=== PATIENT | male | born 1960 | race Caucasian/White ===

== ENCOUNTER 2020-01-01 12:29 | Emergency (ER) | payer OTHER ==
[~2020-01-01] VITALS: Ht 172.7 cm; Wt 88.5 kg
[2020-01-01] MEDS ORDERED: ALBUTEROL SULFATE 8 GM HFA.AER.AD IH STA (12:55)
[2020-01-01] MEDS ORDERED: IBUPROFEN 800 MG TABLET PO ONE (13:00)
[2020-01-01] MEDS ORDERED: predniSONE 10 MG TABLET PO ONE (13:00)
[2020-01-01] MEDS ORDERED: predniSONE 10 MG TABLET ONE (13:06)
[2020-01-01] MEDS ORDERED: IBUPROFEN 800 MG TABLET ONE (13:06)
[2020-01-01] MEDS ORDERED: predniSONE 50 MG TABLET ONE (13:07)
[2020-01-01 13:22] LABS: BASOPHILS # (AUTO) 0.1 K/uL (0.0-8.0); BASOPHILS % (AUTO) 0.9 % (0.0-2.0); EOSINOPHILS # (AUTO) 0.1 K/uL (0.0-0.7); EOSINOPHILS % (AUTO) 1.9 % (0.0-7.0); HEMATOCRIT 45.2 % (36.7-47.1); HEMOGLOBIN 15.4 g/dL (12.5-16.3); LYMPHOCYTES # (AUTO) 1.7 K/uL (20.0-40.0); LYMPHOCYTES % (AUTO) 25.9 % (20.5-51.5); MEAN CORPUSCULAR HEMOGLOBIN 31.8 uug (23.8-33.4); MEAN CORPUSCULAR HGB CONC 34 g/dL (32.5-36.3); MEAN CORPUSCULAR VOLUME 93.7 fL (73.0-96.2); MONOCYTES # (AUTO) 0.4 K/uL (2.0-10.0); MONOCYTES % (AUTO) 6.5 % (0.0-11.0); NEUTROPHILS # (AUTO) 4.3 K/uL (1.8-8.9); NEUTROPHILS % (AUTO) 64.8 % (38.5-71.5); PLATELET COUNT (AUTO) 237 K/uL (152-348); RED BLOOD CELL COUNT(AUTO) 4.82 MIL/uL (4.06-5.63); WHITE BLOOD COUNT (AUTO) 6.7 K/uL (3.6-10.2)
[2020-01-01 13:42] LABS: BILIRUBIN,DIRECT 0.1 mg/dL (0.0-0.2); BILIRUBIN,TOTAL 0.5 mg/dL (0.2-1.0); CREATININE 1.1 mg/dL (0.6-1.3); POTASSIUM 4.1 mmol/L (3.5-5.1); TOTAL PROTEIN, SERUM 6.8 g/dL (6.4-8.2)
--- NOTE | 2020-01-01 17:03 | NUR ---
Patient discharged to home in stable condition. Written and verbal after care instructions given. Patient verbalizes understanding of instructions. Stressed follow up or return to ER for worsening s/s. pt says feels better. pt walks in steady gait.
[2020-01-01 17:04] VITALS: BP 129/81
== END 2020-01-01 17:06 | disposition home or self-care (01) ==
LOC: ER 12:29
DX: J45.901 Unspecified asthma with (acute) exacerbation (principal); R07.2 Precordial pain; E78.5 Hyperlipidemia, unspecified; Z82.49 Family history of ischemic heart disease and other diseases of the circulatory system; Z91.013 Allergy to seafood
CPT/HCPCS: 36415; 71045; 80048; 80061; 80076; 83880; 84484 ×2; 85025; 93005; 99291; J7512 ×2; 70030-TC; A4663; J3535

== ENCOUNTER 2020-07-02 07:44 | Emergency (ER) | payer OTHER ==
[~2020-07-02] VITALS: Ht 167.6 cm; Wt 88.5 kg
[~2020-07-02 07:44] MED LIST: ALBU8.5H8 IH
--- NOTE | 2020-07-02 07:50 | NUR ---
Dr. Mary at bedside for MSE
[2020-07-02] MEDS ORDERED: ALBUTEROL SULFATE 2.5 MG/3 ML NEBU NEB ONE ×2 (08:00)
[2020-07-02] MEDS ORDERED: predniSONE 10 MG TABLET PO ONE (08:00)
[2020-07-02] MEDS ORDERED: ALBUTEROL SULFATE 2.5 MG/3 ML NEBU ONE ×2 (08:06→08:31)
[2020-07-02] MEDS ORDERED: IPRATROPIUM BROMIDE 0.5 MG/2.5 ML NEBU ONE (08:06)
[2020-07-02] MEDS ORDERED: predniSONE 10 MG TABLET ONE (08:19)
[2020-07-02] MEDS ORDERED: predniSONE 50 MG TABLET ONE (08:19)
[2020-07-02 08:21] LABS: BASOPHILS # (AUTO) 0.1 K/uL (0.0-8.0); BASOPHILS % (AUTO) 1.2 % (0.0-2.0); EOSINOPHILS # (AUTO) 0.3 K/uL (0.0-0.7); EOSINOPHILS % (AUTO) 3.4 % (0.0-7.0); HEMOGLOBIN 15.8 g/dL (12.5-16.3); LYMPHOCYTES # (AUTO) 2.9 K/uL (20.0-40.0); LYMPHOCYTES % (AUTO) 36.5 % (20.5-51.5); MEAN CORPUSCULAR HEMOGLOBIN 31.7 uug (23.8-33.4); MEAN CORPUSCULAR HGB CONC 34 g/dL (32.5-36.3); MEAN CORPUSCULAR VOLUME 92.2 fL (73.0-96.2); MONOCYTES # (AUTO) 0.6 K/uL (2.0-10.0); MONOCYTES % (AUTO) 7.2 % (0.0-11.0); NEUTROPHILS # (AUTO) 4.2 K/uL (1.8-8.9); NEUTROPHILS % (AUTO) 51.7 % (38.5-71.5); PLATELET COUNT (AUTO) 242 K/uL (152-348); RED BLOOD CELL COUNT(AUTO) 4.99 MIL/uL (4.06-5.63); WHITE BLOOD COUNT (AUTO) 8.1 K/uL (3.6-10.2)
[2020-07-02 08:28] LABS: CREATININE 1.1 mg/dL (0.6-1.3); POTASSIUM 3.7 mmol/L (3.5-5.1)
[2020-07-02 09:05] VITALS: BP 115/76
--- NOTE | 2020-07-02 09:06 | NUR ---
IV removed. Catheter intact and site benign. Pressure and 4x4 gauze applied to site. No bleeding noted. Patient does not wish to proceed with medical care recommended by Dr. Mary. Patient given information related to possible complications, up to and including , which could occur as a result of leaving the hospital at this time. Patient verbalizes understanding of risks involved due to leaving against medical advice. Patient has signed AMA form. Patient ambulating with steady gait .NAD noted
== END 2020-07-02 09:10 | disposition left against medical advice (07) ==
LOC: ER 07:44
DX: J45.901 Unspecified asthma with (acute) exacerbation (principal); R03.0 Elevated blood-pressure reading, without diagnosis of hypertension; F17.210 Nicotine dependence, cigarettes, uncomplicated; Z82.49 Family history of ischemic heart disease and other diseases of the circulatory system
CPT/HCPCS: 36415; 71045; 80048; 83880; 84484; 85025; 93005; 94640; 99285; 99406; J7512 ×2; 70030-TC; A4663; J3590

== ENCOUNTER 2021-06-09 10:10 | Emergency (ER) | payer OTHER ==
[~2021-06-09] VITALS: Ht 172.7 cm; Wt 88.5 kg
[2021-06-09 11:10] LABS: HEMATOCRIT 45.4 % (36.7-47.1); MEAN CORPUSCULAR HEMOGLOBIN 31.7 uug (23.8-33.4); MEAN CORPUSCULAR VOLUME 92.3 fL (73.0-96.2); PLATELET COUNT (AUTO) 237 K/uL (152-348)
--- NOTE | 2021-06-09 11:10 | NUR ---
receved pt 61yrs male c/o sob for allegic reaction respiration spont and easy hx alleric reaction on distress skin warm and nata to touch seen by dr. arnoldo salas drow by lab tach ekg done
[2021-06-09 11:18] LABS: CREATININE 0.8 mg/dL (0.6-1.3); POTASSIUM 3.9 mmol/L (3.5-5.1)
[2021-06-09 11:35] LABS: BILIRUBIN,DIRECT 0.1 mg/dL (0.0-0.2); BILIRUBIN,TOTAL 0.3 mg/dL (0.2-1.0); TOTAL PROTEIN, SERUM 6.8 g/dL (6.4-8.2)
[2021-06-09] MEDS ORDERED: ALBUTEROL SULFATE 2.5 MG/3 ML NEBU NEB ONE (13:30)
[2021-06-09] MEDS ORDERED: IPRATROPIUM BROMIDE 0.5 MG/2.5 ML NEBU NEB ONE (13:30)
[2021-06-09] MEDS ORDERED: methylPREDNISolone SOD SUCC 125 MG/2 ML VIAL IV ONE (13:30)
[2021-06-09] MEDS ORDERED: ALBUTEROL SULFATE 1.25 MG/3 ML NEBU ONE (13:37)
[2021-06-09] MEDS ORDERED: IPRATROPIUM BROMIDE 0.5 MG/2.5 ML NEBU ONE (13:37)
[2021-06-09] MEDS ORDERED: methylPREDNISolone SOD SUCC 125 MG/2 ML VIAL ONE (13:59)
--- NOTE | 2021-06-09 14:45 | NUR ---
HHN TX GIVEN BY RT na salmdrole given pt imroving after tremnt vs stable
[2021-06-09] MEDS ORDERED: ALBU2.5V38 NEB (15:16)
[2021-06-09] MEDS ORDERED: NEBU-171 MC (15:16)
--- NOTE | 2021-06-09 15:24 | NUR ---
pt imroving and resolve sob and titness feeling batter ad/c instraction and rx given to pt fully and verblized understood d/c home with rx
[2021-06-09 15:29] VITALS: BP 128/84
== END 2021-06-09 15:25 | disposition home or self-care (01) ==
LOC: ER 10:10
DX: R06.00 Dyspnea, unspecified (principal); Z20.822 Contact with and (suspected) exposure to COVID-19; Z82.49 Family history of ischemic heart disease and other diseases of the circulatory system; F17.200 Nicotine dependence, unspecified, uncomplicated; Z91.013 Allergy to seafood; J45.909 Unspecified asthma, uncomplicated
CPT/HCPCS: 36415; 71045; 80048; 80076; 83880; 84484; 85025; 85379; 87426; 93005; 94640; 96374; 99285; J2930; 70030-TC; J3590

== ENCOUNTER 2021-07-15 11:49 | Emergency (ER) | payer OTHER ==
[~2021-07-15] VITALS: Ht 172.7 cm; Wt 88.5 kg
[~2021-07-15 11:49] MED LIST changes: +ALBU2.5V38 NEB; +NEBU-171 MC
[2021-07-15] MEDS ORDERED: predniSONE 20 MG TABLET PO ONE (12:15)
[2021-07-15] MEDS ORDERED: IPRATROPIUM BROMIDE 0.5 MG/2.5 ML NEBU NEB ONE (12:15)
[2021-07-15] MEDS ORDERED: ALBUTEROL SULFATE 2.5 MG/3 ML NEBU NEB ONE (12:15)
[2021-07-15] MEDS ORDERED: predniSONE 20 MG TABLET ONE (12:22)
[2021-07-15 12:30] LABS: MEAN CORPUSCULAR HEMOGLOBIN 31.9 uug (23.8-33.4); MEAN CORPUSCULAR VOLUME 92.3 fL (73.0-96.2); PLATELET COUNT (AUTO) 240 K/uL (152-348)
[2021-07-15] MEDS ORDERED: IPRATROPIUM BROMIDE 0.5 MG/2.5 ML NEBU ONE (12:33)
[2021-07-15] MEDS ORDERED: ALBUTEROL SULFATE 2.5 MG/3 ML NEBU ONE (12:33)
--- NOTE | 2021-07-15 12:36 | NUR ---
PT IS IN ROOM #1A. DR BECERRA EVALUATED THE PT.
[2021-07-15 12:39] LABS: CREATININE 1.1 mg/dL (0.6-1.3); POTASSIUM 3.8 mmol/L (3.5-5.1)
[2021-07-15 12:51] LABS: BILIRUBIN,DIRECT 0.1 mg/dL (0.0-0.2); BILIRUBIN,TOTAL 0.4 mg/dL (0.2-1.0); TOTAL PROTEIN, SERUM 6.6 g/dL (6.4-8.2)
[2021-07-15] MEDS ORDERED: ALBU18HF2 INH (15:23)
[2021-07-15] MEDS ORDERED: PRED50TA PO (15:23)
--- NOTE | 2021-07-15 15:55 | NUR ---
PT WAS D/C'd TO HOME. D/C ISTRUCTIONS GIVEN TO THE PT BY DR BECERRA.
[2021-07-15 15:59] VITALS: BP 137/88
== END 2021-07-15 16:00 | disposition home or self-care (01) ==
LOC: ER 11:54
DX: J45.909 Unspecified asthma, uncomplicated (principal); F17.200 Nicotine dependence, unspecified, uncomplicated; Z82.49 Family history of ischemic heart disease and other diseases of the circulatory system; Z91.013 Allergy to seafood
CPT/HCPCS: 36415; 71045; 80048; 80076; 83880; 84484; 85025; 85379; 93005; 94640; 99285; J7512; 70030-TC; A4663; J3590

== ENCOUNTER 2022-04-01 13:05 | Emergency (ER) | payer BC, OTHER ==
[~2022-04-01] VITALS: Ht 167.6 cm; Wt 85.3 kg
[~2022-04-01 13:05] MED LIST changes: +ALBU18HF2 INH; +PRED50TA PO
--- NOTE | 2022-04-01 13:05 | NUR ---
Dr Campbell at the bedside for MSE.
[2022-04-01] MEDS ORDERED: IPRATROPIUM BROMIDE 0.5 MG/2.5 ML NEBU NEB ONE (13:15)
[2022-04-01] MEDS ORDERED: predniSONE 10 MG TABLET PO ONE (13:15)
[2022-04-01] MEDS ORDERED: ALBUTEROL SULFATE 2.5 MG/3 ML NEBU NEB ONE (13:15)
[2022-04-01] MEDS ORDERED: IV NORMAL SALINE 1000 ML BAG IV ONE (13:15)
[2022-04-01] MEDS ORDERED: IPRATROPIUM BROMIDE 0.5 MG/2.5 ML NEBU ONE ×2 (13:31→13:36)
[2022-04-01] MEDS ORDERED: predniSONE 20 MG TABLET ONE (13:31)
[2022-04-01] MEDS ORDERED: ALBUTEROL SULFATE 2.5 MG/3 ML NEBU ONE ×2 (13:31→13:35)
[2022-04-01 14:00] LABS: HEMATOCRIT 45.7 % (36.7-47.1); MEAN CORPUSCULAR VOLUME 94.3 fL (73.0-96.2); PLATELET COUNT (AUTO) 223 K/uL (152-348)
[2022-04-01] MEDS ORDERED: AMOX500C2 PO (14:19)
[2022-04-01] MEDS ORDERED: DOXY-326 PO (14:19)
[2022-04-01] MEDS ORDERED: PRED20TA PO (14:20)
[2022-04-01 14:49] LABS: CARBON DIOXIDE 27 mmol/L (21-32); CHLORIDE 105 mmol/L (98-107); CREATININE 0.9 mg/dL (0.6-1.3); GLUCOSE 118 mg/dL (74-106); POTASSIUM 3.8 mmol/L (3.5-5.1); UREA NITROGEN, BLOOD 11 mg/dL (7-18)
--- NOTE | 2022-04-01 16:47 | NUR ---
IV removed. Catheter intact and site benign. Pressure and 4x4 gauze applied to site. No bleeding noted.
[2022-04-01] MEDS ORDERED: ALBU8.5H8 INH (17:08)
[2022-04-01] MEDS ORDERED: PRED50TA PO (17:13)
--- NOTE | 2022-04-01 17:17 | NUR ---
Patient does not wish to proceed with medical care recommended by (Emma). Patient given information related to possible complications, up to and including , which could occur as a result of leaving the hospital at this time. Patient verbalizes understanding of risks involved due to leaving against medical advice. Patient has signed AMA form.
[2022-04-01 17:18] VITALS: BP 121/78
== END 2022-04-01 17:21 | disposition left against medical advice (07) ==
LOC: ER 13:05
DX: R07.89 Other chest pain (principal); J18.9 Pneumonia, unspecified organism; J45.909 Unspecified asthma, uncomplicated; Z91.013 Allergy to seafood; Z82.49 Family history of ischemic heart disease and other diseases of the circulatory system; R94.31 Abnormal electrocardiogram [ECG] [EKG]; F17.200 Nicotine dependence, unspecified, uncomplicated; Z53.29 Procedure and treatment not carried out because of patient's decision for other reasons
CPT/HCPCS: 99285; 96360; 71045; 96361; 80048; 83880; 85025; 84484 ×2; 36415; 93005; 94644; J7512; J7040; A4663; J3590

== ENCOUNTER 2022-12-02 04:22 | Emergency (ER) | payer BC ==
[~2022-12-02] VITALS: Ht 172.7 cm; Wt 86.2 kg
[~2022-12-02 04:22] MED LIST changes: +ALBU8.5H8 INH; +AMOX500C2 PO; +DOXY-326 PO
--- NOTE | 2022-12-02 04:51 | NUR ---
MD AT BEDSIDE FOR EXAM, PATIENT HAS BEEN INFORMED OF PLAN OF CARE, NO S/S OF ANY DISTRESS NOTED.
[2022-12-02] MEDS ORDERED: LORAZEPAM 0.5 MG TABLET PO ONE (05:00)
[2022-12-02] MEDS ORDERED: LORA-259 PO (05:01)
[2022-12-02] MEDS ORDERED: LORAZEPAM 1 MG TABLET ONE (05:06)
--- NOTE | 2022-12-02 05:07 | NUR ---
MEDICATED PER ORDER.
[2022-12-02 05:13] VITALS: BP 130/85
--- NOTE | 2022-12-02 05:13 | NUR ---
ACI GIVEN, STATES UNDERSTANDING, REMAINS STABLE FOR DISCHARGE HOME WITH FAMILY.
== END 2022-12-02 05:14 | disposition home or self-care (01) ==
LOC: ER 04:22
DX: J45.909 Unspecified asthma, uncomplicated (principal); T50.905A Adverse effect of unspecified drugs, medicaments and biological substances, initial encounter; F17.210 Nicotine dependence, cigarettes, uncomplicated; Z91.013 Allergy to seafood; Z79.2 Long term (current) use of antibiotics; Z79.899 Other long term (current) drug therapy; Y92.89 Other specified places as the place of occurrence of the external cause
CPT/HCPCS: A4663

== ENCOUNTER 2024-01-05 02:04 | Emergency (ER) | payer BC, MEDICAID ==
[~2024-01-05] VITALS: Ht 172.7 cm; Wt 90.7 kg
[~2024-01-05 02:04] MED LIST changes: +LORA-259 PO
[2024-01-05] MEDS: ALBUTEROL SULFATE 2.5 MG/3 ML NEBU NEB ONE (03:06)
[2024-01-05] MEDS: IPRATROPIUM BROMIDE 0.5 MG/2.5 ML NEBU NEB ONE (03:06)
[2024-01-05 03:07] VITALS: O2SAT 98
[2024-01-05 03:08] LABS: BASOPHILS # (AUTO) 0.1 K/UL (0.0-0.2); BASOPHILS % (AUTO) 0.6 % (0.0-2.0); EOSINOPHILS # (AUTO) 0.5 K/uL (0.0-0.7); EOSINOPHILS % (AUTO) 4.9 % (0.0-7.0); HEMOGLOBIN 15.3 g/dL (12.5-16.3); LYMPHOCYTES # (AUTO) 2.3 K/uL (0.8-4.8); LYMPHOCYTES % (AUTO) 24.8 % (20.5-51.5); MEAN CORPUSCULAR HEMOGLOBIN 31.6 uug (23.8-33.4); MEAN CORPUSCULAR HGB CONC 35 g/dL (32.5-36.3); MEAN CORPUSCULAR VOLUME 91.1 fL (73.0-96.2); MONOCYTES # (AUTO) 0.8 K/uL (0.1-1.30); MONOCYTES % (AUTO) 8.6 % (0.0-11.0); NEUTROPHILS # (AUTO) 5.6 K/uL (1.8-8.9); NEUTROPHILS % (AUTO) 61.1 % (38.5-71.5); PLATELET COUNT (AUTO) 308 K/uL (152-348); RED BLOOD CELL COUNT(AUTO) 4.83 MIL/uL (4.06-5.63); RED CELL DISTRIBUTION WIDTH 13.7 % (12.1-16.2); WHITE BLOOD COUNT (AUTO) 9.2 K/uL (3.6-10.2)
[2024-01-05] MEDS ORDERED: IPRATROPIUM BROMIDE 0.5 MG/2.5 ML NEBU ONE (03:08)
[2024-01-05] MEDS ORDERED: ALBUTEROL SULFATE 2.5 MG/3 ML NEBU ONE (03:08)
[2024-01-05] MEDS ORDERED: predniSONE 20 MG TABLET ONE (03:14)
[2024-01-05] MEDS: predniSONE 20 MG TABLET PO ONE (03:18)
[2024-01-05 03:22] VITALS: O2SAT 98
[2024-01-05 03:33] LABS: DIFFERENTIAL COMMENT 1
[2024-01-05 03:41] LABS: CALCIUM 9.3 mg/dL (8.5-10.1); CARBON DIOXIDE 24 mmol/L (21-32); CHLORIDE 104 mmol/L (98-107); CREATININE 0.9 mg/dL (0.6-1.3); GLUCOSE 105 mg/dL (74-106); SODIUM SERUM 140 mmol/L (136-145); UREA NITROGEN, BLOOD 16 mg/dL (7-18)
[2024-01-05 03:49] LABS: ALANINE AMINOTRANSFERASE 23 U/L (16-63); ALBUMIN 3.7 g/dL (3.4-5.0); ALKALINE PHOSPHATASE 200 U/L (50-136); ASPARTATE AMINOTRANSFERASE 7 U/L (15-37); BILIRUBIN,DIRECT 0.1 mg/dL (0.0-0.2); BILIRUBIN,TOTAL 0.4 mg/dL (0.2-1.0); TOTAL PROTEIN, SERUM 6.9 g/dL (6.4-8.2)
[2024-01-05] MEDS ORDERED: METH4TAB21 GT (04:07)
[2024-01-05] MEDS ORDERED: ALBU8.5H8 INH (04:07)
[2024-01-05] MEDS ORDERED: AZIT250T13 PO (04:07)
[2024-01-05] MEDS ORDERED: predniSONE 20 MG TABLET PO ONE (04:15)
[2024-01-05 04:57] VITALS: BP 156/90; TEMP 98.2; O2SAT 99
== END 2024-01-05 04:28 | disposition home or self-care (01) ==
LOC: ER 02:50
DX: S22.42XA Multiple fractures of ribs, left side, initial encounter for closed fracture (principal); R06.00 Dyspnea, unspecified; J20.9 Acute bronchitis, unspecified; R03.0 Elevated blood-pressure reading, without diagnosis of hypertension; J45.909 Unspecified asthma, uncomplicated; F17.200 Nicotine dependence, unspecified, uncomplicated; Z79.899 Other long term (current) drug therapy; Z91.018 Allergy to other foods; V49.3XXA Car occupant (driver) (passenger) injured in unspecified nontraffic accident, initial encounter; Y93.89 Activity, other specified; Y92.89 Other specified places as the place of occurrence of the external cause; Y99.8 Other external cause status
CPT/HCPCS: 99285; 71045; 80076; 80048; 83880; 85025; 84484; 36415; 93005; 94640; J7512; A4606; A4663; J3590

== ENCOUNTER 2024-02-21 05:43 | Emergency (ER) | payer MEDICAID, OTHER ==
[~2024-02-21 05:43] MED LIST changes: +AZIT250T13 PO; +METH4TAB21 GT
== END 2024-02-21 06:42 | disposition left against medical advice (07) ==
LOC: ER 05:52
DX: J45.909 Unspecified asthma, uncomplicated (principal); Z53.21 Procedure and treatment not carried out due to patient leaving prior to being seen by health care provider

== ENCOUNTER 2025-02-14 18:45 | Emergency (ER) | payer OTHER ==
[~2025-02-14] VITALS: Ht 172.7 cm; Wt 88.5 kg
[2025-02-14] MEDS ORDERED: IPRATROPIUM BROMIDE 0.5 MG/2.5 ML NEBU NEB ONE (19:00)
[2025-02-14] MEDS ORDERED: ALBUTEROL SULFATE 2.5 MG/ 0.5 ML NEBU NEB ONE (19:00)
[2025-02-14 19:15] VITALS: O2SAT 96
[2025-02-14 19:30] VITALS: O2SAT 98
[2025-02-14] MEDS ORDERED: METH4TAB3 PO (19:38)
[2025-02-14] MEDS ORDERED: ALBU18HF2 INH (19:38)
[2025-02-14] MEDS ORDERED: ALBU2.5V13 NEB (19:38)
[2025-02-14] MEDS: predniSONE 20 MG TABLET PO ONE (19:58)
[2025-02-14 20:10] VITALS: BP 140/86; TEMP 207.9; O2SAT 96
== END 2025-02-14 20:10 | disposition home or self-care (01) ==
LOC: ER 18:45
DX: J45.901 Unspecified asthma with (acute) exacerbation (principal); R03.0 Elevated blood-pressure reading, without diagnosis of hypertension; F17.210 Nicotine dependence, cigarettes, uncomplicated; Z79.52 Long term (current) use of systemic steroids; Z88.7 Allergy status to serum and vaccine; Z60.2 Problems related to living alone
CPT/HCPCS: 99283; 94640; J7512; A4606; A4663; J3590